=== PATIENT | female | born 1980 | race Caucasian/White ===

== ENCOUNTER 2019-02-04 07:44 | Inpatient (IN) | payer MEDICAID ==
[~2019-02-04] VITALS: Ht 162.6 cm; Wt 92.5 kg
[2019-02-04] MEDS ORDERED: LACTATED RINGERS 1,000 ML IV SCH (08:35)
[2019-02-04] MEDS ORDERED: PREN-380 PO (08:35)
[2019-02-04] MEDS ORDERED: CITRIC ACID/SODIUM CITRATE 30 ML UDC PO SCH (09:00)
[2019-02-04 09:24] LABS: BASOPHILS % (AUTO) 0.3 % (0.0-2.0); EOSINOPHILS # (AUTO) 0.1 K/uL (0-0.4); EOSINOPHILS % (AUTO) 1.7 % (0.0-4.0); HEMATOCRIT 38.2 % (36-48); HEMOGLOBIN 12.4 g/dL (12.0-16.0); LYMPHOCYTES # (AUTO) 1.8 K/uL (2.5-16.5); LYMPHOCYTES % (AUTO) 20.6 % (20.5-51.1); MEAN CORPUSCULAR HEMOGLOBIN 29 pg (27-31); MEAN CORPUSCULAR HGB CONC 33 g/dL (33-37); MEAN CORPUSCULAR VOLUME 88.7 fL (80-94); MONOCYTES # (AUTO) 0.6 K/uL (0.8-1.0); NEUTROPHILS # (AUTO) 6.1 K/uL (1.8-7.7); NEUTROPHILS % (AUTO) 70.4 % (42.2-75.2); PLATELET COUNT (AUTO) 208 K/uL (140-450); RED BLOOD CELL COUNT(AUTO) 4.31 MIL/uL (4.20-5.40); RED CELL DISTRIBUTION WIDTH 13.5 % (11.6-13.7); WHITE BLOOD COUNT (AUTO) 8.6 K/uL (4.8-10.8)
[2019-02-04 09:56] LABS: APPEARANCE,URINE CLEAR (CLEAR); BILIRUBIN,URINE NEGATIVE (NEGATIVE); BLOOD, URINE TRACE-I (NEGATIVE); COLOR,URINE YELLOW (YELLOW); LEUKOCYTE ESTERASE ,URINE NEGATIVE (NEGATIVE); NITRITE, URINE NEGATIVE (NEGATIVE); UGLUCOSE NEGATIVE (NEGATIVE)
[2019-02-04 10:13] LABS: RBC,URINE 0-5 /HPF (0-5); WBC,URINE 0-5 /HPF (0-5)
[2019-02-04] MEDS ORDERED: PHENYLEPHRINE 10 MG/ML VIAL ONE (10:25)
[2019-02-04] MEDS ORDERED: ePHEDrine 50 MG/ML VIAL ONE (10:25)
[2019-02-04] MEDS ORDERED: OXYTOCIN 10 UNITS/ML VIAL ONE ×2 (10:25→13:13)
[2019-02-04] MEDS ORDERED: CITRIC ACID/SODIUM CITRATE 30 ML UDC ONE (10:37)
[2019-02-04] MEDS ORDERED: fentaNYL 0.05 MG/ML VIAL ONE (10:41)
[2019-02-04] MEDS ORDERED: MORPHINE PRES FREE 10 MG/10 ML AMP IV ONE (10:41)
[2019-02-04] MEDS ORDERED: ONDANSETRON 4 MG/2 ML VIAL IVP PRN ×2 (11:05)
[2019-02-04] MEDS ORDERED: diphenhydrAMINE 50 MG/ML VIAL IVP PRN (11:05)
[2019-02-04] MEDS ORDERED: KETOROLAC 60 MG/2 ML VIAL IM PRN (11:05)
[2019-02-04] MEDS ORDERED: NALBUPHINE 10 MG/ML AMP IVP PRN (11:05)
[2019-02-04] MEDS ORDERED: NALOXONE 0.4 MG/ML VIAL IVP PRN ×3 (11:05)
[2019-02-04] MEDS ORDERED: diphenhydrAMINE 50 MG/ML VIAL ONE (13:12)
[2019-02-04] MEDS ORDERED: ONDANSETRON 4 MG/2 ML VIAL ONE (13:13)
[2019-02-04] MEDS ORDERED: OXYTOCIN 20 UNITS/LR PREMIX 1,000 ML IV ONE ×2 (13:15→21:20)
[2019-02-04] MEDS ORDERED: MEASLES, MUMPS, AND RUBELLA 1 VIAL SQVAC PRN (16:10)
[2019-02-04] MEDS: KETOROLAC 30 MG/ML VIAL IVP PRN (18:31)
[2019-02-04] MEDS ORDERED: ceFAZolin 1,000 MG VIAL ONE (20:48)
[2019-02-04] MEDS: OXYTOCIN 20 UNITS in LACTATED RINGERS 1,000 ML IV SCH (22:30)
[2019-02-05] MEDS ORDERED: HYDROmorphone 1 MG/ML AMP IVP PRN (05:00)
[2019-02-05] MEDS ORDERED: ceFAZolin 1,000 MG VIAL ONE (05:10)
[2019-02-05] MEDS: OXYTOCIN 20 UNITS in LACTATED RINGERS 1,000 ML IV SCH (09:08)
[2019-02-05 10:25] LABS: BASOPHILS % (AUTO) 0.2 % (0.0-2.0); EOSINOPHILS # (AUTO) 0.1 K/uL (0-0.4); EOSINOPHILS % (AUTO) 0.5 % (0.0-4.0); HEMATOCRIT 29.4 % (36-48); HEMOGLOBIN 9.7 g/dL (12.0-16.0); LYMPHOCYTES # (AUTO) 1.6 K/uL (2.5-16.5); LYMPHOCYTES % (AUTO) 14.3 % (20.5-51.1); MEAN CORPUSCULAR HEMOGLOBIN 29 pg (27-31); MEAN CORPUSCULAR HGB CONC 33 g/dL (33-37); MEAN CORPUSCULAR VOLUME 88.7 fL (80-94); MONOCYTES # (AUTO) 0.8 K/uL (0.8-1.0); MONOCYTES % (AUTO) 6.8 % (1.7-9.3); NEUTROPHILS % (AUTO) 78.2 % (42.2-75.2); PLATELET COUNT (AUTO) 154 K/uL (140-450); RED BLOOD CELL COUNT(AUTO) 3.31 MIL/uL (4.20-5.40); RED CELL DISTRIBUTION WIDTH 13.8 % (11.6-13.7); WHITE BLOOD COUNT (AUTO) 11.5 K/uL (4.8-10.8)
[2019-02-05] MEDS: KETOROLAC 30 MG/ML VIAL IVP PRN ×2 (11:23→18:25)
[2019-02-05] MEDS ORDERED: ACETAMINOPHEN 325 MG TAB PO PRN (22:00)
[2019-02-06] MEDS: KETOROLAC 30 MG/ML VIAL IVP PRN (03:08)
[2019-02-06] MEDS ORDERED: SODIUM PHOSPHATE 118 ML ENEM RC PRN (08:00)
[2019-02-06] MEDS: SIMETHICONE 80 MG TAB.CHEW PO SCH ×3 (08:27→17:36)
[2019-02-06] MEDS: DOCUSATE SODIUM 100 MG GELCAP PO SCH (08:28)
[2019-02-06] MEDS: BISACODYL 5 MG TABEC PO SCH (08:28)
[2019-02-06] MEDS: IBUPROFEN 600 MG TAB PO PRN ×2 (11:44→19:54)
[2019-02-06] MEDS ORDERED: INFLUENZA VIRUS VACCINE QUAD 0.5 ML SYR IMVAC PRN ×2 (19:30→19:40)
[2019-02-07] MEDS: SIMETHICONE 80 MG TAB.CHEW PO SCH ×3 (08:12→17:49)
[2019-02-07] MEDS: DOCUSATE SODIUM 100 MG GELCAP PO SCH (08:13)
[2019-02-07] MEDS: IBUPROFEN 600 MG TAB PO PRN ×2 (08:13→21:01)
[2019-02-07] MEDS: BISACODYL 5 MG TABEC PO SCH (08:13)
[2019-02-08] MEDS: DOCUSATE SODIUM 100 MG GELCAP PO SCH (09:16)
[2019-02-08] MEDS: BISACODYL 5 MG TABEC PO SCH (09:16)
[2019-02-08] MEDS: SIMETHICONE 80 MG TAB.CHEW PO SCH (09:17)
== END 2019-02-08 15:00 | disposition home or self-care (01) | DRG 540 ==
LOC: MLD 07:44 → MFCC 10:30
PROVIDERS: ADMIT Obstetrics & Gynecology; ATTEND Obstetrics & Gynecology
PROC: 0UB70ZZ Excision of Bilateral Fallopian Tubes, Open Approach (ICD-10-PCS; 2019-02-04)
PROC: 3E0R3BZ Introduction of Anesthetic Agent into Spinal Canal, Percutaneous Approach (ICD-10-PCS; 2019-02-04)
PROC: 10D00Z1 Extraction of Products of Conception, Low, Open Approach (ICD-10-PCS; principal; 2019-02-04 10:30)
PROC: 3E02340 Introduction of Influenza Vaccine into Muscle, Percutaneous Approach (ICD-10-PCS; 2019-02-06)
PROC: 3E0234Z Introduction of Serum, Toxoid and Vaccine into Muscle, Percutaneous Approach (ICD-10-PCS; 2019-02-06)
DX: O34.211 Maternal care for low transverse scar from previous cesarean delivery (principal); Z23 Encounter for immunization; Z30.2 Encounter for sterilization; Z37.0 Single live birth; Z3A.39 39 weeks gestation of pregnancy
CPT/HCPCS: 36415; 81001; 85025; 86592; 86886; 86900; 86901; 87081; 87086; 88302; 90715; J0690; J1200; J1885; J2270; J2370; J2405; J2590; J3010; J7060; J7120